=== PATIENT | male | born 1980 | race African-American/Black ===

== ENCOUNTER 2017-03-31 12:11 | Emergency (ER) | payer OTHER ==
[~2017-03-31] VITALS: Ht 188 cm; Wt 117.9 kg
--- NOTE | ~2017-03-31 | CR20 ---
[facility] A Service [facility] RADIOLOGY TEXT RESULTS PATIENT: DAYNE GLOVER LOCATION: [place] : 76 UNIT #: [id number] AGE: [address]: Elsy Cano APRN SEX: M ORDER DR: [id number] [facility] [address] [place], [place] [address] [id number] E MR#: [id number] Acc #: [id number] NAME: DAYNE GLOVER : 1980 SEX: M STUDY DATE/TIME: 03/31/2017 12:33 UNIT: [place] ROOM: STUDY DESCRIPTION: CR Ankle Min 3 Views Lt Attending Physician: Elsy Cano A.P.R.N. Ordering Physician: Ed Ugo Mcdonald M.D. Primary Care Physician: Primary Care Physician No MEDICAL IMAGING REPORT This report is preliminary unless electronic signature is present EXAM Left ankle, 3 views COMPARISON None INDICATIONS 36-year-old male with left ankle pain and swelling for 4 days. No acute injury. FINDINGS There is mild marginal osteophyte formation at the medial dome of the talus, no evidence of osseous erosions. No acute fracture. Bones are anatomically aligned. Questionable healed fracture of the tubercle of the fifth metatarsal. IMPRESSION 1. No acute fracture, dislocation or other acute abnormality seen at the left ankle. 2. Minimal medial marginal osteophyte formation of the talar dome. Dictated by... Carlos Lyons M.D. THIS IS AN ELECTRONICALLY VERIFIED REPORT Carlos Lyons M.D. at 04/06/2017 8:56 PM [facility]/psc TD: 03/31/2017 20:45 JOB #: [id number] MEDICAL IMAGING REPORT [facility] A Service [facility] RADIOLOGY TEXT RESULTS PATIENT: DAYNE GLOVER LOCATION: [facility] : [birth year] UNIT #: [id number] AGE: [address]: Elsy Cano APRN SEX: M ORDER DR: Page 1 of 1 COPY
[~2017-03-31 12:11] MED LIST: CIPRO PO; FLAGYL PO; IBUPROFEN PO; MEDROL PO; MEDROL4 MG/DOSE- PO; OMNICEF PO; TESSALON200 MG PO
== END 2017-03-31 14:15 | disposition home or self-care (01) ==
LOC: CED 12:11 → CFTX 12:11
DX: M25.572 Pain in left ankle and joints of left foot (principal); Z86.718 Personal history of other venous thrombosis and embolism; Z86.711 Personal history of pulmonary embolism; Z98.890 Other specified postprocedural states; F17.210 Nicotine dependence, cigarettes, uncomplicated
CPT/HCPCS: 29540; 73610; 99283